=== PATIENT | male | born 1985 | race Caucasian/White ===

== ENCOUNTER → 2019-02-04 | Outpatient (CLI) | payer BC ==
[~2019-02-04] MED LIST: CATHETER FLUSH 10 ML SYR IV PRN
--- NOTE | 2019-02-04 19:01 | Diagnostic Imaging Report ---
INDICATION: Right upper quadrant pain. TECHNIQUE: The patient was administered 5.4 mCi of technetium 99m Choletec and imaging over the abdomen was performed. At 1 hour, the patient ingested 8 ounces of Ensure and a gallbladder ejection fraction was calculated. FINDINGS: There is homogeneous uptake of activity by the liver. Prompt excretion of activity into the common duct and gallbladder is seen. There is normal passage of activity into the small bowel. The gallbladder ejection fraction is slightly low at 30%. Normal values are 33% or greater. IMPRESSION: 1. No evidence of cystic duct or common bile duct obstruction. 2. Slightly low gallbladder ejection fraction. Dictated by: Dictated on workstation # [id number]
== END ==
LOC: CARD 12:29
PROVIDERS: ATTEND Surgery
DX: R10.11 Right upper quadrant pain (principal); K82.8 Other specified diseases of gallbladder
CPT/HCPCS: 78227

== ENCOUNTER 2019-02-11 05:38 | Outpatient (CLI) | payer BC ==
[~2019-02-11] VITALS: Ht 188 cm; Wt 106.6 kg
[2019-02-11] MEDS ORDERED: MULT-974 PO (13:05)
== END 2019-02-11 13:15 | disposition home or self-care (01) ==
LOC: PREOP 05:38
PROVIDERS: ATTEND Surgery
DX: Z01.818 Encounter for other preprocedural examination (principal)

== ENCOUNTER 2019-02-13 07:26 | Day surgery (SDC) | payer BC ==
[~2019-02-13] VITALS: Ht 188 cm; Wt 108.9 kg
[~2019-02-13 07:26] MED LIST changes: -CATHETER FLUSH 10 ML SYR IV PRN; +MULT-974 PO
--- NOTE | 2019-02-13 07:35 | Progress Note-Pre Operative ---
Pre-Operative Progress Note H&P Reviewed The H&P was reviewed, patient examined and no changes noted. Date Seen by Provider: Jan 24, 2019 Time Seen by Provider: 13:00 Date H&P Reviewed: Feb 13, 2019 Time H&P Reviewed: 07:34 Pre-Operative Diagnosis: Chronic acalculous cholecystitis OLAYINKA HOLBROOK MD Feb 13, 2019 07:35
[2019-02-13] MEDS ORDERED: LACTATED RINGERS 1,000 ML IV PRN (07:37)
[2019-02-13 07:45] VITALS: BP 132/91
[2019-02-13] MEDS ORDERED: metroNIDAZOLE 500MG/100ML IVPB 100 ML IV ONE (07:45)
[2019-02-13] MEDS ORDERED: ceFAZolin INJECTION 1,000 MG in WATER (STERILE) FOR INJECTION 10 ML IV ONE (07:45)
[2019-02-13] MEDS ORDERED: CATHETER FLUSH 10 ML SYR IV PRN (07:45)
[2019-02-13] MEDS ORDERED: BUP/EPI 0.5% 1:200,000 (SENSORCAINE) 30 ML VIAL ONE (07:45)
[2019-02-13] MEDS ORDERED: LIDOCAINE PF 2% 5 ML (XYLOCAINE) VIAL ONE (07:56)
[2019-02-13] MEDS ORDERED: proPOfol 200 MG/20 ML (DIPRIVAN) VIAL IV ONE (07:56)
[2019-02-13] MEDS ORDERED: DEXAMETHASONE 10 MG/ML (DECADRON) 1 ML VIAL ONE (07:56)
[2019-02-13] MEDS ORDERED: SEVOFLURANE (ULTANE) 15 ML INHAL SOLN ONE ×6 (07:56→09:42)
[2019-02-13] MEDS ORDERED: MIDAZOLAM 2 MG/2 ML (VERSED) VIAL ONE (07:56)
[2019-02-13] MEDS ORDERED: ROCURONIUM 10 MG/ML 5 ML SYRINGE IV ONE (07:56)
[2019-02-13] MEDS ORDERED: fentaNYL INJECTION 100 MCG/2 ML AMP ONE ×2 (07:57→09:01)
[2019-02-13 08:14] LABS: BASOPHILS # (AUTO) 0.1 10^3/uL (0.0-0.1); BASOPHILS % (AUTO) 1 % (0-10); EOSINOPHILS # (AUTO) 0.1 10^3/uL (0.0-0.3); EOSINOPHILS % (AUTO) 1 % (0-10); HEMATOCRIT 49 % (40-54); HEMOGLOBIN 16.9 G/DL (13.3-17.7); LYMPHOCYTES # (AUTO) 1.4 X 10^3 (1.0-4.0); LYMPHOCYTES % (AUTO) 16 % (12-44); MEAN CORPUSCULAR HEMOGLOBIN 31 PG (25-34); MEAN CORPUSCULAR HGB CONC 35 G/DL (32-36); MEAN CORPUSCULAR VOLUME 89 FL (80-99); MEAN PLATELET VOLUME 11.7 FL (7.4-10.4); MONOCYTES # (AUTO) 0.7 X 10^3 (0.0-1.0); MONOCYTES % (AUTO) 8 % (0-12); NEUTROPHILS # (AUTO) 6.7 X 10^3 (1.8-7.8); NEUTROPHILS % (AUTO) 75 % (42-75); PLATELET COUNT 216 10^3/uL (130-400); RED CELL DISTRIBUTION WIDTH 13.9 % (10.0-14.5)
[2019-02-13] MEDS ORDERED: ceFAZolin 2 GM/50 ML PRE-MIX IVPB IV ONE (08:30)
[2019-02-13] MEDS ORDERED: ONDANSETRON 4 MG/2 ML (SDV) Z0FRAN ONE (09:42)
[2019-02-13] MEDS ORDERED: KETOROLAC 30 MG/ML VIAL ONE (09:43)
[2019-02-13] MEDS ORDERED: NEOSTIGMINE 1 MG/ML 5 ML SYRINGE ONE (09:43)
[2019-02-13] MEDS ORDERED: GLYCOPYRROLATE 0.2 MG/ML (ROBINUL) 2 ML VIAL ONE (09:43)
[2019-02-13] MEDS ORDERED: ACHD5005 PO (09:52)
--- NOTE | 2019-02-13 09:52 | Operative Report ---
Operative Report Date of Procedure/Surgery Feb 13, 2019 Surgeon (s) OLAYINKA HOLBROOK MD Wheel Worker (s): N/A Post-Operative Diagnosis same Procedure Performed robotic-assisted cholecystectomy Description of Procedure Anesthesia Type: General Estimated blood loss (mL): minimal Specimen(s) collected/removed gallbladder Description of the Procedure Indication for the procedure: This gentleman presented with typical biliary symptoms due to chronic, acalculous cholecystitis and reduced ejection fraction on HIDA scan. It was felt reasonable to offer cholecystectomy. Informed consent was obtained after reviewing the operative details and complications of wound infection, bile leak and the possibility of persistent pain, requiring further evaluation. Description of the procedure: He was placed supine on the operative table and anesthesia induced. Ancef and Flagyl were administered intravenously as prophylaxis against wound infection. Sequential compression devices were placed around his legs, to minimize the risk of venous thrombosis. Abdomen was prepared and draped in the usual sterile manner. A supraumbilical incision was made and pneumoperitoneum established using a Veress needle. Intra -abdominal pressure was maintained at 17 mmHg, using carbon dioxide insufflation. A 12 mm trocar was placed and anatomy visualized using the high definition, 3-dimensional laparoscope, associated with da Day system. Under direct view, I placed an 8 mm trocar on each side of the abdomen, followed by a 5 mm trocar over the left subcostal region. The patient was then turned into reverse tender but position, with the right side tilted up. The robotic system was then docked in place. The fundus of the gallbladder was retracted cephalad and the infundibulum grasped with Cadiere forceps. Peritoneum overlying Calot's triangle was incised using the hook cautery, delineating the cystic duct and artery. Both were controlled between locking clips. An additional branch of the right hepatic artery was found coursing along the inferior border of the gallbladder. It was carefully preserved. It had excellent was able position and did not have the appearance of an aberrant duct. Cholecystectomy was then completed using the hook cautery. Intra-abdominal pressure was reduced to 13 mmHg, looking for bleeding from the gallbladder fossa. A few areas were encountered and controlled using the hook cautery. The gallbladder was then placed in an Endo Catch bag and removed via the supraumbilical trocar site. The fascia over the supraumbilical incision was closed using #1 Vicryl using the Yrn Canchola device. Skin incisions were closed using 4-0 Vicryl, in a subcuticular fashion. 0.5 percent Marcaine with epinephrine was infiltrated along the incisions, both preemptively and at the conclusion of the operation. He tolerated the procedure well, was extubated in the operating room and taken to the recovery room in a stable condition. Findings of the Procedure See op report Allergies and Home Medications Allergies Coded Allergies: No Known Drug Allergies (Unverified , 02/11/19) Home Medications Multivitamin 1 Each Tablet, 1 EACH PO DAILY, (Reported) Patient Home Medication List Home Medication List Reviewed: Yes OLAYINKA HOLBROOK MD Feb 13, 2019 09:52
--- NOTE | 2019-02-13 09:53 | Discharge Inst-Simple/Standard ---
Discharge Inst-Standard Discharge Medications New, Converted or Re-Newed RX: RX on Chart Patient Instructions/Follow Up Plan of Care/Instructions/FU: Band-Aids off in 48 hours. Incentive spirometry. Follow-up with me next the Activity as Tolerated: Yes Discharge Diet: No Restrictions OLAYINKA HOLBROOK MD Feb 13, 2019 09:53
[2019-02-13] MEDS ORDERED: morphine INJ 10 MG/ML 1ML (SYR OR VIAL) ONE (10:02)
[2019-02-13] MEDS ORDERED: ONDANSETRON 4 MG/2 ML (SDV) Z0FRAN IVP PRN (10:15)
[2019-02-13] MEDS ORDERED: HYDROmorphone 2 MG/ML VIAL (DILAUDID) IV ONE (10:15)
[2019-02-13] MEDS ORDERED: morphine INJ 10 MG/ML 1ML (SYR OR VIAL) IVP ONE (10:15)
[2019-02-13 11:20] VITALS: BP 134/102
[2019-02-13 11:50] VITALS: BP 139/84
[2019-02-13] MEDS ORDERED: HYDROcodone/APAP 5 MG/325 MG (LORTAB) TAB PO ONE (12:00)
[2019-02-13 12:20] VITALS: BP 142/91
[2019-02-13 12:40] VITALS: BP 142/91
--- NOTE | 2019-02-13 13:20 | Anesthesia-General Post-Op ---
General Patient Condition Mental Status/LOC: Same as Preop Cardiovascular: Satisfactory Nausea/Vomiting: Absent Respiratory: Satisfactory Pain: Controlled Complications: Absent Post Op Complications Complications None Follow Up Care/Instructions Patient Instructions None needed. Anesthesia/Patient Condition Patient Condition Patient is doing well, no complaints, stable vital signs, no apparent adverse anesthesia problems. No complications reported per nursing. SAHIL ERVIN CRNA Feb 13, 2019 13:20
== END 2019-02-13 12:45 | disposition home or self-care (01) ==
LOC: SDC 07:26
PROVIDERS: ATTEND Surgery
DX: K81.1 Chronic cholecystitis (principal); K82.8 Other specified diseases of gallbladder; Z11.2 Encounter for screening for other bacterial diseases; F17.210 Nicotine dependence, cigarettes, uncomplicated
CPT/HCPCS: 36415; 85025; 87081

== ENCOUNTER 2019-06-13 05:34 | Outpatient (CLI) | payer BC ==
[~2019-06-13] VITALS: Ht 188 cm; Wt 105.2 kg
[~2019-06-13 05:34] MED LIST changes: +ACHD5005 PO
[2019-06-13] MEDS ORDERED: PANT40TA3 PO (11:39)
[2019-06-13] MEDS ORDERED: LEVO5TAB28 PO (11:39)
== END 2019-06-13 14:25 | disposition home or self-care (01) ==
LOC: PREOP 05:34
PROVIDERS: ATTEND Surgery
DX: Z01.818 Encounter for other preprocedural examination (principal)

== ENCOUNTER 2019-06-17 10:09 | Day surgery (SDC) | payer BC ==
[~2019-06-17] VITALS: Ht 188 cm; Wt 105.2 kg
[2019-06-17] VITALS (8 sets, daily range): BP systolic 116–126; BP diastolic 71–84
[~2019-06-17 10:09] MED LIST changes: +LEVO5TAB28 PO; +PANT40TA3 PO
[2019-06-17] MEDS ORDERED: LACTATED RINGERS 1,000 ML IV ONE (10:16)
[2019-06-17] MEDS ORDERED: LACTATED RINGERS 1,000 ML IV STA (10:33)
[2019-06-17] MEDS ORDERED: HURRICAINE EXT TUBE (BENZOCAINE) XX PRN (10:45)
[2019-06-17] MEDS ORDERED: MIDAZOLAM 2 MG/2 ML (VERSED) VIAL ONE (11:18)
[2019-06-17] MEDS ORDERED: fentaNYL INJECTION 100 MCG/2 ML AMP ONE (11:18)
[2019-06-17] MEDS ORDERED: PROPOFOL INJECTION 50 ML IV ONE (11:19)
--- NOTE | 2019-06-17 11:34 | Progress Note-Pre Operative ---
Pre-Operative Progress Note H&P Reviewed The H&P was reviewed, patient examined and no changes noted. Time Seen by Provider: 11:16 Date H&P Reviewed: Jun 17, 2019 Time H&P Reviewed: 11:17 Pre-Operative Diagnosis: Chronic Gastritis, change in bowel habits NGUYỄN MYERS DO Jun 17, 2019 11:34
--- NOTE | 2019-06-17 12:10 | Progress Note-Post Operative ---
Post-Operative Progess Note Surgeon (s)/Rouge Sifter And Miller (s) Surgeon NGUYỄN MYERS DO Rouge Sifter And Miller: none Pre-Operative Diagnosis Chronic Gastritis, change in bowel habits Post-Operative Diagnosis Gastritis Esophagitis Colon polyp TI ulcer Hemorrhoids Procedure & Operative Findings Date of Procedure 06/17/19 Procedure Performed/Findings EGD with bx Colon with bx Anesthesia Type IV sedation by MOTORCYCLE RIDING INSTRUCTOR Estimated Blood Loss Estimated blood loss (mL): scant Specimens/Packing Specimens Removed antral bx, body of stomach bx, GE jxn bx, esophageal bx TI bx Ascending colon polyp NGUYỄN MYERS DO Jun 17, 2019 12:10
[2019-06-17] MEDS ORDERED: SUCR1TAB36 PO (12:11)
--- NOTE | 2019-06-17 12:15 | Endoscopy Discharge Instruct ---
Endo Procedure/Findings Findings 1.: Gastritis, Other Findings (Esophagitis) 2.: Other Findings (TI ulcer) 3.: Polyp 4.: Internal Hemorrhoids Discharge Instructions - Activity: You might feel a little sleepy until tomorrow. This is due to the medicine you received to relax you. Until tomorrow, you should: NOT drive a car, operate machinery or power tools. NOT drink any alcoholic beverages. NOT make any important decisions or sign importortant papers. Do not return to work until tomorrow, unless otherwise instructed. Resume previous activities tomorrow. Diet: Start by taking liquids. If you tolerate liquids, advance to solid food. make appointment for 2 weeks. Instructions: 1.: Colonoscopy in 1 year, EGD in 1 year Notify Physician - If you experience excessive bleeding, unusual abdominal pain, fever, or chest pain, contact your doctor immediately. Follow-Up: - I have received and understand the above instructions and will call my doctor if I have any further questions. Patient Signature Date Nurse Signature Other (Relationship) NGUYỄN MYERS DO Jun 17, 2019 12:15
--- OUTSIDE RECORDS SUMMARY | 2019-06-17 22:20 | XMS REPORT | Continuity of Care Document ---
Author Organization Unknown Address Unknown Allergies There is no data. Medications There is no data. Problems There is no data. Procedures There is no data. Results There is no data. Encounters ACCT No. Visit Date/Time Discharge Status Pt. Type Provider Facility Loc./Unit Complaint [id number] 05/15/2019 10:00:00 05/15/2019 23:59:59 [facility] Outpatient [facility]
--- NOTE | 2019-06-18 23:23 | OPERATIVE REPORT ---
DATE OF SERVICE: 06/17/2019 PREOPERATIVE DIAGNOSES: Gastritis, abdominal pain, change in bowel habits, diarrhea. POSTOPERATIVE DIAGNOSES: 1. Gastritis. 2. Esophagitis. 3. Colon polyp. 4. Terminal ileal ulcer. 5. Internal hemorrhoids. PROCEDURES: 1. Colonoscopy with biopsy. 2. EGD with biopsy. SURGEON: Naresh Vazquez D.O. PUZZLE ASSEMBLER: None. ANESTHESIA: IV sedation by the DIET SUPERVISOR. SPECIMEN: Biopsy from the antrum as well as body of stomach and I believe at the GE junction and then higher up in the esophagus, also had a biopsy of the terminal ileal ulcer and then a biopsy of a polyp. FLUIDS: Per anesthesia. POSTOPERATIVE CONDITION: Stable. INDICATION FOR PROCEDURE: The patient is a 34-year-old male, who has been having chronic gastritis, abdominal pain, has also had change in bowel habits, having some diarrhea, needed a workup. FINDINGS: The patient had mild gastritis, but he did have some changes at the GE junction and then actually higher up in the esophagus, saw what look like gastric implants. In the colon, looked like he had an ulcer in the terminal ileum, picture taken, biopsy done and then he had another polyp seen, was removed and then had some internal hemorrhoids. PROCEDURE NOTE: After informed consent was obtained, the patient was brought to the endoscopy suite and placed in the bed in left lateral decubitus position. He was administered IV sedation by the DIET SUPERVISOR, who monitored his vitals the entire time, heart rate, blood pressure, pulse ox and started with the EGD, placed the scope down the mouth through the esophagus and into the stomach. Stomach looked a little bit red, had some gastritis, pushed into the duodenum. Duodenum looked fine. Pulled back into the antrum, did a biopsy of the antrum and then a biopsy of the body of the stomach, retroflexed the scope, may have had a very small hiatal hernia, pulled back into the GE junction and took a biopsy here and then when pulling the scope up in the upper portion of the esophagus, saw an area of what looked like possibly gastric implants, took a biopsy up here and then pulled the scope out, switched gloves, switched scopes and went down below, started the colonoscopy, pushed all the way in to about 150 cm, able to get to the cecum, took a picture of appendiceal orifice and then pushed into the terminal ileum and then terminal ileum looked like an ulcer, took a picture of this and then did a biopsy of this and then slowly started withdrawing the scope, insufflating to look circumferentially while looking at the cecum up the ascending colon, I believe in the ascending colon saw a polyp, removed this with a cold biopsy and then continued up to the hepatic flexure, down the transverse colon, the splenic flexure, into the descending colon and down sigmoid and finally into the rectum, retroflexed within the rectal vault, saw some internal hemorrhoids, took a picture of this and then removed the scope. The patient tolerated the procedure. He was recovered in endoscopy suite. Job ID: [id number] DocumentID: [id number] Dictated Date: 06/18/2019 17:32:51 Librarian Head Date: 06/18/2019 23:22:14 Dictated By: NARESH VAZQUEZ DO
== END 2019-06-17 13:10 | disposition home or self-care (01) ==
LOC: ENDO 10:09
PROVIDERS: ATTEND Surgery
DX: K29.50 Unspecified chronic gastritis without bleeding (principal); K29.70 Gastritis, unspecified, without bleeding; K21.0 Gastro-esophageal reflux disease with esophagitis; D12.2 Benign neoplasm of ascending colon; K52.9 Noninfective gastroenteritis and colitis, unspecified; F17.210 Nicotine dependence, cigarettes, uncomplicated; K31.89 Other diseases of stomach and duodenum
CPT/HCPCS: 88305

== ENCOUNTER → 2019-12-09 | Outpatient (CLI) | payer BC ==
[~2019-12-09] MED LIST changes: +BARIUM for suspension 96% w/w (Vanilla Silq Medium Density) PO ONE; +SUCR1TAB36 PO
--- NOTE | 2019-12-09 13:51 | Diagnostic Imaging Report ---
INDICATION: Abdominal pain. Study is performed to evaluate for Crohn's disease. FINDINGS: Preliminary radiograph of the abdomen demonstrates normal bowel gas pattern. Patient did ingest barium and serial radiographs of the abdomen were performed. Stomach is unremarkable. There is prompt passage of barium into the proximal small bowel loops. No abnormal small bowel dilatation is seen. There is normal progression of barium through small bowel loops. There does appear to be a short segment of significant luminal narrowing and irregularity involving the terminal ileum. There is also irregularity involving the cecum with luminal narrowing. Findings are suspicious for involvement by Crohn's. No definite fistulous tract is identified. There is no bowel obstruction. IMPRESSION: There is some persistent marked luminal narrowing involving the terminal ileum which also demonstrates irregularity. This is also seen involving the cecum and findings are suspicious for ileocolitis, perhaps from Crohn's disease. CT would be useful for further evaluation, if clinically indicated. Dictated by: Dictated on workstation # [id number]
== END ==
LOC: RAD 07:39
PROVIDERS: ATTEND Specialist
DX: R10.9 Unspecified abdominal pain (principal)
CPT/HCPCS: 74250

== ENCOUNTER 2023-08-11 14:14 | Emergency (ER) | payer BC ==
[~2023-08-11 14:14] MED LIST changes: -BARIUM for suspension 96% w/w (Vanilla Silq Medium Density) PO ONE; -PANT40TA3 PO; +PANT40TA52 PO
[2023-08-11 14:50] VITALS: BP 139/90
--- NOTE | 2023-08-11 14:50 | ED Psychosocial ---
General Chief Complaint: Suicidal Ideation Risk Stated Complaint: SUICIDAL IDEATION Source: patient Exam Limitations: no limitations History of Present Illness Date Seen by Provider: Aug 11, 2023 Time Seen by Provider: 14:14 Initial Comments 38-year-old male with past medical history of depression coming in due to passive suicidal ideation. He has felt this way for years, it is exacerbated by work where he just got a demotion. He states he has never harmed himself, would not harm himself and has no plans to harm himself, however if he were to he would not mind. He has seen a psychiatrist and counselor in the past. He changed from Celexa to Desvenlafaxine, prazosin, and Buspirone last week by his PCP. Denies any physical complaints today Allergies and Home Medications Allergies Coded Allergies: No Known Drug Allergies (Unverified , 06/13/19) Patient Home Medication List Home Medication List Reviewed: Yes Levocetirizine Dihydrochloride (Xyzal) 5 Mg Tablet, 5 MG PO DAILY, (Reported) Entered as Reported by: DEBBIE AVALOS on 06/13/19 1139 Multivitamin (Multi-Vitamin Daily) 1 Each Tablet, 1 EACH PO DAILY, (Reported) Entered as Reported by: DEBBIE AVALOS on 02/11/19 1305 Pantoprazole Sodium (Pantoprazole Sodium) 40 Mg Tablet.dr, 40 MG PO DAILY, (Reported) Entered as Reported by: DEBBIE AVALOS on 06/13/19 1139 Sucralfate (Carafate) 1 Gm Tablet, 1 GM PO AC Prescribed by: NGUYỄN MYERS on 06/17/19 1211 Review of Systems Constitutional: No fever EENTM: no symptoms reported Respiratory: no symptoms reported Cardiovascular: no symptoms reported Gastrointestinal: no symptoms reported Genitourinary: no symptoms reported Musculoskeletal: no symptoms reported Skin: no symptoms reported Psychiatric/Neurological: See HPI All Other Systems Reviewed Negative Unless Noted: Yes Past Lvfxckw-Qqofcy-Tcozax Hx Seasonal Allergies Seasonal Allergies: Yes Past Medical History Surgeries: Yes (KNEE SCOPE) Gallbladder Respiratory: No Cardiac: No Neurological: No Sexually Transmitted Disease: No HIV/AIDS: No Genitourinary: No Gastrointestinal: Yes (GASTRITIS ) Gastroesophageal Reflux, Chronic Diarrhea Musculoskeletal: Yes (R KNEE) Arthritis Endocrine: No HEENT: No Loss of Vision: Denies Hearing Impairment: Denies Cancer: No Psychosocial: Yes (MILD) Anxiety Integumentary: No Blood Disorders: No Adverse Reaction/Blood Tranf: No (N/A) Physical Exam Capillary Refill : Height, Weight, BMI Height: 6'2.00" Weight: 232lbs. 0.0oz. [id number]; 29.8 BMI Method: General Appearance: WD/WN, no apparent distress HEENT: PERRL/EOMI, normal ENT inspection, pharynx normal Neck: non-tender, full range of motion, supple, normal inspection Respiratory: chest non-tender, lungs clear, normal breath sounds, no respiratory distress, no accessory muscle use Cardiovascular: regular rate, rhythm, no edema, no murmur Gastrointestinal: normal bowel sounds, non tender, soft; No distended, No guarding, No rebound Extremities: normal range of motion, non-tender, normal inspection, no pedal edema, no calf tenderness, normal capillary refill Neurologic/Psychiatric: no motor/sensory deficits, alert, normal mood/affect, oriented x 3 Appearance/Memory: appropriate appearance, appropriate insight, neat Behavior/Eye Contact: cooperative, good eye contact, normal speech Thoughts/Hallucinations: no apparent hallucination, other (Passive suicidal ideation) Skin: normal color, warm/dry Progress/Results/Core Measures Results/Orders My Orders Orders - SHELLEY MORATAYA MD Ua Culture If Indicated (08/11/23 14:30) Drug Screen Stat (Urine) (08/11/23 14:30) Ekg Tracing (08/11/23 14:30) Progress Progress Note : Progress Note 38-year-old male presenting for passive suicidal ideation. ABCs were intact and vitals were stable on presentation. Physical exam reassuring with no focal abnormalities. Patient is adamant that he would never harm himself, he was just trying to see if he could get help faster. He is on new medications for the past week, and I discussed that typically changing an SSRI takes over a month to start having significant improvement in symptoms. I offered our mental health screener to talk about a plan and see what they come up with. He is adamant he does not want inpatient admission, and he feels safe at home. The patient opted to leave, and did not want to be screened. I confirmed numerous times that he has no plans to harm himself. He already has a PCP that is evaluating him, and he sees a mental health provider at [facility] as well. Departure Impression Primary Impression: Passive suicidal ideations Disposition: HOME, SELF-CARE Condition: Stable Departure-Patient Inst. Decision time for Depature: 15:00 Referrals: MARLENI AGUILERA MD (PCP/Family) Primary Care Physician Patient Instructions: OUTPT MENTAL HEALTH SERVICES SHELLEY MORATAYA MD Aug 11, 2023 14:50
== END 2023-08-11 14:50 | disposition home or self-care (01) ==
LOC: EDUNIT# 14:14 → ER FS 14:16
DX: R45.851 Suicidal ideations (principal)
CPT/HCPCS: 99281